=== PATIENT | female | born 1965 | race Caucasian/White ===

== ENCOUNTER 2017-12-13 11:03 | Emergency (ER) | payer OTHER ==
[2017-12-13 11:15] VITALS: BMI 20.9
[2017-12-13] MEDS ORDERED: ONDANSETRON 4 MG/2 ML VIAL IVPUSH ONE (12:12)
[2017-12-13] MEDS ORDERED: SODIUM CHLORIDE 1,000 ML IV STA (12:12)
[2017-12-13] MEDS ORDERED: ACETAMINOPHEN 1000 MG/100 ML VIAL (NON FORMULARY) IVPB ONE (12:12)
[2017-12-13] MEDS ORDERED: ONDANSETRON 4 MG/2 ML VIAL ONE (12:29)
[2017-12-13] MEDS ORDERED: ACETAMINOPHEN INJECTION 100 ML IVPB ONE (12:29)
[2017-12-13 12:46] LABS: BASO % 0.6 % (0-2.0); HEMATOCRIT 37.6 % (32.4-45.2); HEMOGLOBIN 12.9 GM/dL (10.7-15.3); MCH 30.4 pg (25.7-33.7); MCHC 34.2 g/dl (32.0-36.0); MEAN CELL VOLUME 88.8 fl (80-96); MEAN PLT VOLUME 8.2 fl (7.5-11.1); MONO % 13.2 % (3.8-10.2); NEUT % 61.2 % (42.8-82.8); PLATELET COUNT 185 K/MM3 (134-434); RBC 4.24 M/mm3 (3.60-5.2); RDW 13.3 % (11.6-15.6); WHITE BLOOD COUNT 5.8 K/mm3 (4.0-10.0)
--- NOTE | 2017-12-13 12:50 | PDOC ---
History of Present Illness - General Chief Complaint: Respiratory Stated Complaint: cough/vomiting chest pain on inspiration/high bp Time Seen by Provider: 12/13/17 11:45 History Source: Patient Exam Limitations: No Limitations - History of Present Illness Initial Comments: 12/13/17 12:44 HPI: This 53-year-old female presents to the emergency room with complaints of nasal congestion, face pain, throat pain, and not feeling well for the past few days. She states that she was at the doctor's office with her father across the street and that time study technologist suggested she came over to the emergency room for further evaluation as she did not look well. She stated she did have a fever although she is afebrile here. She also stated that she had some nausea and vomiting as well. No nausea or vomiting at this time. She has not taken anything for any of this discomfort. Chief Compliant: Nasal congestion, face pain, throat pain, nausea and vomiting PMH: Partial thyroidectomy years ago FH: Pt has not recently traveled outside the country in the last 30 days. Pt has not been in contact with people who have traveled out of the country, in contact with people who have been ill with fever, n, v, d. SH: smoking use: NONE illicit drug use: NONE alcohol use: NONE PSH: Thyroidectomy Home med use noted on OCT Allergies: NKA Immunizations: PCP: dr barnes Past History - Past Medical History Allergies/Adverse Reactions: Allergies Allergy/AdvReac Type Severity Reaction Status Date / Time No Known Allergies Allergy Verified 12/13/17 11:11 Home Medications: Ambulatory Orders NK [No Known Home Medication] 12/13/17 COPD: No - Suicide/Smoking/Psychosocial Hx Smoking History: Never smoked Have you smoked in the past 12 months: No Information on smoking cessation initiated: No Hx Alcohol Use: No Drug/Substance Use Hx: No Substance Use Type: None Review of Systems - Review of Systems Able to Perform ROS?: Yes Comments:: 12/13/17 12:47 General statement: Hematology: neg history of bleeding/blood thinners Skin: Neg for lesions, rash, bruising. HEENT: Nasal congestion, sore throat, symptoms Respiratory: Neg SOB or difficulty in breathing Cardiac: Neg chest pain GI: Neg pain, positive n/v : Neg problems on voiding MS: Neg for joint pain/stiffness, no edema Neuro: Neg for LOC, weakness, Endocrine: Neg for excess thirst/hunger, cold/heat intolerance, excess sweating Allergies: Neg for allergies *Physical Exam - Vital Signs Last Vital Signs Temp Pulse Resp BP Pulse Ox 98.8 F 107 H 16 161/109 100 12/13/17 11:11 12/13/17 11:11 12/13/17 11:11 12/13/17 11:11 12/13/17 11:49 - Physical Exam Comments: 12/13/17 12:47 General Appearance: This well appearing 52-year-old female V/S: hemodynamically stable, afebrile Skin: WNL of pt's skin color, no signs of pallor, mottling, cyanosis Head:symmetrical Eyes: EOM's intact, PERRLA Ears: denies pain Nose: patent Throat: lips, teeth, gums, tongue, buccal mucos pink and moist Lungs: Chest symmetry equal. Cap refill <3 seconds. Lung sounds clear Cardiac: PMI at R 4MCL space, pos S1 and S2, regular rate. Abdomen: Soft, round, nontender : Not observed Muscularskeletal: Gait steady, ambulated in to ER, no edema +PMS Neuro: AAOx3, cognitively intact, speech clear and appropriate. Heart Score/ECG Review - History History: Moderately suspicious - Age Age: 45-65 - Risk Factors Risk Factors Heart Score: Yes Hx Hypercholesterolemia, Yes Hx Hypertension ED Treatment Course - LABORATORY CBC & Chemistry Diagram: 12/13/17 12:30 12/13/17 12:30 Medical Decision Making - Medical Decision Making 12/13/17 12:48 A/P: 52-year-old female with complaints of some facial pressure, nasal congestion, feeling of an anxiety and neck discomfort with status post partial thyroidectomy on no medications. Appears congested with nasal vocal communication. Afebrile. Has not taken any medications. Concerned about her father across the street at the doctor's office. -TSH, CBC, CMP -EKG normal sinus rhythm at a rate of 91 -IV fluids, Tylenol, Zofran -Will reassess 12/13/17 13:21 Labs wnl pt feeling better will d/c with abt for sinusitis *DC/Admit/Observation/Transfer Diagnosis at time of Disposition: Sinusitis, acute Qualifiers: Sinusitis location: frontal Recurrence: non-recurrent Qualified Code(s): J01.10 - Acute frontal sinusitis, unspecified - Discharge Dispostion Disposition: HOME Condition at time of disposition: Stable - Referrals Referrals: Wolf Doyle MD [Primary Care Provider] - - Patient Instructions Printed Discharge Instructions: DI for Sinusitis Additional Instructions: Discharge instructions 1. Please follow up with your primary physician within the next few days and explain that you have been seen here in the Emergency Room. 2. If you experience any worsening of symptoms, please return to the ER 3. Rest 4. Drink plenty of water - Post Discharge Activity Forms/Work/School Notes: Back to Work
[2017-12-13 13:08] LABS: ALBUMIN 4.2 g/dl (3.4-5.0); ANION GAP 6 (8-16); BILIRUBIN,TOTAL 0.5 mg/dL (0.2-1.0); BLOOD UREA NITROGEN 13 mg/dL (7-18); CALCIUM 8.7 mg/dL (8.5-10.1); CHLORIDE 104 mmol/L (98-107); CO2 28 mmol/L (21-32); CREATININE 0.8 mg/dL (0.55-1.02); GLUCOSE,RANDOM 87 mg/dL (74-106); POTASSIUM 3.9 mmol/L (3.5-5.1); SGOT/AST 24 U/L (15-37); SGPT/ALT 40 U/L (12-78); SODIUM 138 mmol/L (136-145); TOT PROT 7.7 g/dl (6.4-8.2)
[2017-12-13 13:17] LABS: ALK PHOS 98 U/L (45-117)
[2017-12-13 13:38] VITALS: BP 138/77; PULSE 82; TEMP 98.3
--- NOTE | 2017-12-13 15:17 | EKG ---
Test Reason : Blood Pressure : / mmHG Vent. Rate : 091 BPM Atrial Rate : 091 BPM P-R Int : 138 ms QRS Dur : 074 ms QT Int : 362 ms P-R-T Axes : 071 056 058 degrees QTc Int : 445 ms NORMAL SINUS RHYTHM POSSIBLE LEFT ATRIAL ENLARGEMENT BORDERLINE ECG NO PREVIOUS ECGS AVAILABLE Confirmed by TANNER SHANNON, KOJO ([id number]) on 12/13/2017 3:16:58 PM Referred By: Confirmed By:KOJO HART MD
== END 2017-12-13 13:36 | disposition home or self-care (01) ==
LOC: JER 11:03
PROC: 3E033NZ Introduction of Analgesics, Hypnotics, Sedatives into Peripheral Vein, Percutaneous Approach (ICD-10-PCS; principal; 2017-12-13)
PROC: 3E033GC Introduction of Other Therapeutic Substance into Peripheral Vein, Percutaneous Approach (ICD-10-PCS; 2017-12-13)
PROC: 3E0337Z Introduction of Electrolytic and Water Balance Substance into Peripheral Vein, Percutaneous Approach (ICD-10-PCS; 2017-12-13)
DX: J01.10 Acute frontal sinusitis, unspecified (principal)
CPT/HCPCS: 36415; 80053; 84443; 85025; 93005; 93010; 96361; 96374; 96375; 99283-25; J0131; J7030